=== PATIENT | female | born 1950 | race Caucasian/White ===

== ENCOUNTER 2020-02-03 08:33 | Emergency (ER) | payer MEDICARE, SELFPAY ==
[2020-02-03 08:35] VITALS: BP 134/61; PULSE 72; RESP 16; TEMP 36.6; O2SAT 97
--- NOTE | 2020-02-03 09:28 | ED.SKABFB ---
HPI - Skin/Abscess/Foreign Bdy General Chief complaint: Skin/Abscess/Foreign Body Stated complaint: Possible Shingles Time Seen by Provider: 02/03/20 09:00 Source: patient and RN notes reviewed Mode of arrival: ambulatory Limitations: no limitations History of Present Illness HPI narrative: Patient presents today complaining of a rash to the left lower back, left lower abdomen, bilateral breast folds x2 days. Denies pain, but does report itching. She has been using Goldbond powder, hydrocortisone, and Tylenol. States she has been in physical therapy recently and sweating more than she normally does. History of shingles and subsequent shingles vaccine. MD complaint: rash Related Data Home Medications Medication Instructions Recorded Confirmed Eliquis 02/03/20 Lantus U-100 Insulin 02/03/20 Lumigan 02/03/20 Methenamine Compound 02/03/20 Novolog U-100 Insulin aspart 02/03/20 atorvastatin 02/03/20 dorzolamide 02/03/20 Allergies Allergy/AdvReac Type Severity Reaction Status Date / Time Sulfa (Sulfonamide Allergy Rash Verified 02/03/20 09:02 Antibiotics) codeine AdvReac Nausea Verified 02/03/20 09:02 Review of Systems Review of Systems: Narrative: CONSTITUTIONAL: Denies body aches, fever, chills, or sweats. EYES: Denies visual changes, redness, or discharge. ENT: Denies rhinorrhea, congestion, sore throat, or otalgia. CARDIOVASCULAR: Denies chest pain, palpitations, or edema. RESPIRATORY: Denies cough or dyspnea. GASTROINTESTINAL: Denies abdominal pain, nausea, vomiting, or diarrhea. GENITOURINARY: Denies dysuria or hematuria. SKIN: Denies wounds. + Pruritic rash MUSCULOSKELETAL: Denies back pain, joint pain, or myalgia. NEUROLOGIC: Denies headache, numbness, tingling, or weakness. PSYCH: Denies depression or anxiety. [facility] Past Medical History Medical History (Updated 02/03/20 @ 09:45 by Kristen Daugherty, [employer], ) A-fib Arthritis Diabetes Glaucoma History of shingles Social History Social History Gender identity (if verbalized by the patient): Female Comments At time of signature, I have reviewed and agree with nursing past medical, surgical, social and family history unless otherwise noted. Please see nursing chart for further information. There is no relevant family history pertinent to the presenting complaint Exam Narrative: Exam Narrative: GENERAL: Well-appearing, well-nourished, and in no acute distress. HEAD: Normocephalic, atraumatic. EYES: EOMI. No redness or drainage. Conjunctivae normal. ENT: Mucous membranes pink and moist. NECK: Normal AROM. Supple. No lymphadenopathy. CHEST: No respiratory distress. Clear to auscultation. HEART: Regular rate and rhythm. No murmur appreciated. Normal peripheral pulses. EXTREMITIES: Normal range of motion. No edema. SKIN: Warm, dry. Capillary refill normal. Normal skin turgor. Erythematous intertriginous rash in the bilateral breast folds and left lower abdominal fold with mild maceration. Large erythematous flaky rash to left flank area. NEURO: No focal deficits. Alert and oriented x3. Gait steady with walker. PSYCH: Normal affect. No signs of depression or anxiety. Course Vital Signs Vital signs: Vital Signs Temperature 97.9 F 02/03/20 08:35 Pulse Rate 72 02/03/20 08:35 Respiratory Rate 16 02/03/20 08:35 Blood Pressure 134/61 02/03/20 08:35 Pulse Oximetry 97 02/03/20 08:35 Temperature 97.9 F 02/03/20 08:35 Pulse Rate 72 02/03/20 08:35 Respiratory Rate 16 02/03/20 08:35 Blood Pressure 134/61 02/03/20 08:35 Pulse Oximetry 97 02/03/20 08:35 Reviewed. Pt has been instructed to follow up with her PCP regarding her elevated blood pressure today. MDM - Skin/Abscess/Foreign Bdy Differential Diagnosis Differential diagnosis: Likely abscess of skin or subcutaneous tissue, urticaria, herpes zoster, cellulitis, eczema, impetigo, contact dermatitis and other (Intertrigo, Teresita, tinea)
== END 2020-02-03 09:37 | disposition home or self-care (01) ==
PROVIDERS: Emergency Provider Nurse Practitioner
DX: B35.4 Tinea corporis (principal); I48.91 Unspecified atrial fibrillation; M19.90 Unspecified osteoarthritis, unspecified site; E11.9 Type 2 diabetes mellitus without complications; H40.9 Unspecified glaucoma
CPT/HCPCS: 99203; G0463